=== PATIENT | female | born 1980 | race African-American/Black ===

== ENCOUNTER 2016-12-07 17:26 | Emergency (ER) ==
--- NOTE | 2016-12-07 21:04 | PROVIDER DOCUMENTATION ---
HPI-General Adult - General Chief Complaint: Dizziness Stated Complaint: DIZZINESS Time Seen by Provider: 12/07/16 20:56 Source: patient Allergies/Adverse Reactions: Patient Allergies Allergy/AdvReac Type Severity Reaction Status Date / Time bismuth subsalicylate Allergy Mild RASH Verified 01/16/14 14:32 [From Pepto-Bismol] Penicillins Allergy Unknown RASH Verified 01/16/14 14:32 Home Medications: Home Medication List Medication Instructions Recorded Confirmed Last Taken Type Ciprofloxacin HCl [Cipro] 500 mg PO BID #14 tablet 01/16/14 Unknown Rx Ketorolac [Toradol] 10 mg PO Q6H PRN PRN #15 tablet 06/17/16 Unknown Rx - History of Present Illness -Gen Adult Nature of Presenting Problems: 36y/o F with no chronic medical problems who presents to the ER with complaint of "I left work because I got hot and felt like I was going to pass out". Patient had the same symptoms yesterday that lasted approximately 1 minute. Todays episode started at 2:45pm while working. Patient states she only feels lightheaded when standing up. Patient admits to not drinking much water and working in a hot environment and working a lot recently. LMP: n/a (on depo provera) Location of Pain/Injury: reports: none Quality of Pain: reports: none Onset/Duration: reports: 2 days ago Timing: reports: still present Context/Activities at Onset: reports: moderate activity Review of Systems - Adult - REVIEW OF SYSTEMS - ADULT Constitutional: reports: no symptoms reported. denies: chills, fever Eyes: reports: no symptoms reported. denies: decreased vision, blurred vision, double vision Ears, Nose, Mouth & Throat: reports: no symptoms reported. denies: ear pain, hearing loss Cardiovascular: reports: heart murmur (chronic). denies: chest pain, irregular heart rate, syncope Respiratory: reports: no symptoms reported. denies: cough, dyspnea on exertion , shortness of breath, wheezing Gastrointestinal: reports: no symptoms reported. denies: abdominal pain, nausea , vomiting Genitourinary: reports: no symptoms reported. denies: dysuria, discharge, frequency, flank pain, hematuria Musculoskeletal: reports: no symptoms reported. denies: bone pain, back pain, muscle weakness Integumentary: reports: no symptoms reported. denies: itching, rash Neurological: reports: headache/migraines (history of migraines denies PEREZ currently), other (lightheadedness). denies: dizziness/vertigo, loss of balance , numbness, paresthesia, slurred speech Psychiatric: reports: no symptoms reported Endocrine: reports: no symptoms reported Hematologic/Lymphatic: reports: no symptoms reported Allergic/Immunologic: reports: no symptoms reported All Other Systems: Reviewed and Negative Past History - Adult - PAST MEDICAL HISTORY-ADULT Review of Records: reports: Nursing Assessment Review, Medications Reviewed Major Childhood Illnesses: reports: denies history Cardiovascular: reports: murmur Respiratory: reports: denies history Gastrointestinal: reports: denies history Obstetrical/Gynecological: reports: denies history Genitourinary: reports: denies history Musculoskeletal: reports: denies history Neurological: reports: headaches/migraines (during 3 years ago) Endocrine/Immune: reports: denies history Other Conditions: reports: denies history - PRIOR SURGERIES/PROCEDURES Surgical/Procedure History: reports: none - PRIOR HOSPITALIZATIONS Prior Hospitalizations: reports: none - IMMUNIZATION STATUS Childhood Immunizations: See Nurse Assessment Flu Vaccine: See Nurse Assessment - FAMILY HISTORY Family History: reviewed, not pertinent Physical Exam-General - PHYSICAL EXAM-ADULT Initial Vital Signs Reviewed: Yes - CONSTITUTIONAL General Appearance: appears well, alert, no apparent distress - EYES Eyes: PERRL/EOMI, pink conjunctivae - HEAD, EARS, NOSE, MOUTH & THROAT HENMT: normocephalic/atraumatic, moist mucous membranes - NECK Neck: non-tender, full range of motion, supple - RESPIRATORY Respiratory: chest non-tender, lungs clear, normal breath sounds, no pleuratic chest pain, no respiratory distress, no accessory muscle use - CARDIOVASCULAR Cardiovascular: normal peripheral pulses, regular rate, rhythm, no edema, other (murmur) - GASTROINTESTINAL (ABDOMEN) Abdominal Exam: non tender, soft - LYMPHATIC Lymphatic: no adenopathy - MUSCULOSKELETAL Extremity: normal range of motion, non-tender, normal gait, normal inspection Peripheral Pulses: radial (R): 2+, radial (L): 2+ - SKIN Integumentary: normal color, normal turgor, warm/dry - NEUROLOGIC Neurologic: ap processor II-XII nml as tested, grossly normal, no motor/sensory deficits . negative: abnormal gait, aphasia, EOM palsy, facial droop, focal weakness, motor weakness, sensory deficit - PSYCHIATRIC Psych/Mental Status: normal mood/affect, normal thought content, normal thought process, oriented x 3 Progress - PLAN OF CARE/RESULTS Progress/Plan/Lab Results: Orders Category Date Time Status CBC WITH ELECTRONIC DIFF [HEME] Stat Lab 12/07/16 21:41 Completed COMPREHENSIVE METABOLIC PANEL [CHEM] Stat Lab 12/07/16 21:41 Completed TEST-URINE [PREG] Stat Lab 12/07/16 21:40 Completed 0.9% Sodium Chloride Inj [Ns] 1,000 ml Med 12/07/16 21:06 Discontinued IV 999 mls/hr Laboratory Tests 12/07/16 12/07/16 03 21:40 21:41 21:41 WBC 8.99 RBC 4.36 Hgb 12.2 Hct 37.2 MCV 85.3 MCH 28.0 MCHC 32.8 L RDW Std Deviation 14.6 H Plt Count 253 MPV 9.8 Immature Gran % (Auto) 0.2 Neut % (Auto) 38.7 L Lymph % (Auto) 46.3 Luce % (Auto) 8.1 Eos % (Auto) 6.1 Baso % (Auto) 0.6 Immature Gran # (Auto) 0.02 Neut # (Auto) 3.48 Lymph # (Auto) 4.16 H Luce # (Auto) 0.73 H Eos # (Auto) 0.55 Baso # (Auto) 0.05 Sodium 139 Potassium 3.8 Chloride 104 Carbon Dioxide 23 L Anion Gap 12 BUN 16 Creatinine 0.7 Estimated GFR/1.73 m2 > 60 BUN/Creatinine Ratio 23 Glucose 82 POC Glucose Calculated Osmolality 278 Calcium 9.2 Total Bilirubin 0.20 AST 17 ALT 13 Alkaline Phosphatase 66 Total Protein 6.9 Albumin 3.9 Globulin 3.0 Albumin/Globulin Ratio 1.0 Urine Test NEGATIVE 12/07/16 21:59 WBC RBC Hgb Hct MCV MCH MCHC RDW Std Deviation Plt Count MPV Immature Gran % (Auto) Neut % (Auto) Lymph % (Auto) Luce % (Auto) Eos % (Auto) Baso % (Auto) Immature Gran # (Auto) Neut # (Auto) Lymph # (Auto) Luce # (Auto) Eos # (Auto) Baso # (Auto) Sodium Potassium Chloride Carbon Dioxide Anion Gap BUN Creatinine Estimated GFR/1.73 m2 BUN/Creatinine Ratio Glucose POC Glucose 116 H Calculated Osmolality Calcium Total Bilirubin AST ALT Alkaline Phosphatase Total Protein Albumin Globulin Albumin/Globulin Ratio Urine Test Vital Signs Temp Pulse Pulse Pulse Pulse Resp BP 12/07/16 19:21 96 H 102 H 94 H 12/07/16 17:50 99.2 F 93 H 20 137/79 BP BP BP Pulse Ox 12/07/16 19:21 138/89 128/97 135/87 12/07/16 17:50 98 bismuth subsalicylate [From Pepto-Bismol] Allergy (Mild, Verified 01/16/14 14:32 ) RASH Penicillins Allergy (Unknown, Verified 01/16/14 14:32) RASH Ciprofloxacin HCl [Cipro] 500 mg PO BID #14 tablet 01/16/14 Ketorolac [Toradol] 10 mg PO Q6H PRN PRN #15 tablet 06/17/16 Laboratory 12/07/16 12/07/16 12/07/16 21:59 21:41 21:41 WBC 8.99 RBC 4.36 Hgb 12.2 Hct 37.2 MCV 85.3 MCH 28.0 MCHC 32.8 L RDW Std Deviation 14.6 H Plt Count 253 MPV 9.8 Immature Gran % (Auto) 0.2 Neut % (Auto) 38.7 L Lymph % (Auto) 46.3 Luce % (Auto) 8.1 Eos % (Auto) 6.1 Baso % (Auto) 0.6 Immature Gran # (Auto) 0.02 Neut # (Auto) 3.48 Lymph # (Auto) 4.16 H Luce # (Auto) 0.73 H Eos # (Auto) 0.55 Baso # (Auto) 0.05 Sodium 139 Potassium 3.8 Chloride 104 Carbon Dioxide 23 L Anion Gap 12 BUN 16 Creatinine 0.7 Estimated GFR/1.73 m2 > 60 BUN/Creatinine Ratio 23 Glucose 82 POC Glucose 116 H Calculated Osmolality 278 Calcium 9.2 Total Bilirubin 0.20 AST 17 ALT 13 Alkaline Phosphatase 66 Total Protein 6.9 Albumin 3.9 Globulin 3.0 Albumin/Globulin Ratio 1.0 Urine Test 12/07/16 21:40 WBC RBC Hgb Hct MCV MCH MCHC RDW Std Deviation Plt Count MPV Immature Gran % (Auto) Neut % (Auto) Lymph % (Auto) Luce % (Auto) Eos % (Auto) Baso % (Auto) Immature Gran # (Auto) Neut # (Auto) Lymph # (Auto) Luce # (Auto) Eos # (Auto) Baso # (Auto) Sodium Potassium Chloride Carbon Dioxide Anion Gap BUN Creatinine Estimated GFR/1.73 m2 BUN/Creatinine Ratio Glucose POC Glucose Calculated Osmolality Calcium Total Bilirubin AST ALT Alkaline Phosphatase Total Protein Albumin Globulin Albumin/Globulin Ratio Urine Test NEGATIVE - REASSESSMENT Reassessment #1 Time Reassessed: 22:24 (Labs unremarkable. Orthostatics negative. Patients lightheadedness resolved after fluids. Will discharge home to follow up with a PCP.) Departure - Departure Time of Disposition Order: 22:23 DIAGNOSIS: Light-headedness, Mild dehydration Disposition: HOME 01 Certified Medical Emergency: Emergent Condition: Good Additional Instructions: Drink plenty of water. Follow up with a primary care provider for further evaluation. Return to ER for any new or worsening symptoms. ED Follow Up Instructions: You have been treated by a care provider in the Emergency Department. These instructions are being provided to you so you can have an understanding of how to care for yourself upon discharge. Upon discharge from the Emergency Department, you are responsible for making arrangements for follow-up care by a physician of your choice. Take all prescribed medications as directed. Return to the Emergency Department immediately for any new or worsening symptoms. You may call the Physician Referral phone number at [phone] to obtain a list of Physicians who are taking new patients. Attestation - Physician/ [facility] Attestation Patient care was provided by Advanced Practice Provider:: Yes Advanced Practice Provider:: Thelma Zhong Advanced Practice Provider documentation review:: The Mid-level provider documentation, treatment plan and medical decision making was reviewed by the physician who agrees with all treatment and medical decision making by the MLP.
[2016-12-07] MEDS ORDERED: NS 1,000 ML IV ONE (21:06)
[2016-12-07 21:58] LABS: MANUAL DIFF NEEDED? NO
[2016-12-07 22:00] LABS: BASO% 0.6 % (0.0-0.8); EOS# 0.55 X1000 (0.0-0.7); EOS% 6.1 % (0.0-10.0); HEMATOCRIT 37.2 % (37.0-47.0); HEMOGLOBIN 12.2 g/dL (12.0-16.0); IMM GRAN# 0.02 X1000 (0.0-0.04); IMM GRAN% 0.2 % (0.0-0.5); LYMPH# 4.16 X1000 (1.2-3.4); LYMPH% 46.3 % (20.5-51.1); MCHC 32.8 g/dL (33-37); MCV 85.3 FL (81-99); MONO# 0.73 X1000 (0.11-0.59); MONO% 8.1 % (1.7-9.3); MPV 9.8 FL (7.4-10.4); NEUT% 38.7 % (42.2-75.2); PLT 253 X1000 (130-400); RBC 4.36 XMIL (4.2-5.4)
[2016-12-07 22:18] LABS: AGAP 12; ALBUMIN 3.9 g/dL (3.5-5.0); ALKALINE PHOSPHATASE 66 U/L (32-104); BUN 16 mg/dL (8-22); CALCIUM 9.2 mg/dL (8.8-10.2); CHLORIDE 104 mmol/L (98-107); COSMO 278; GOT 17 U/L (10-30); GPT 13 U/L (10-36); POTASSIUM 3.8 mmol/L (3.5-5.1); SODIUM 139 mmol/L (136-145); TCO2 23 mmol/L (25-35); TOTAL PROTEIN 6.9 g/dL (6.3-8.3)
[2016-12-08 00:33] VITALS: BP 124/77
== END 2016-12-08 00:32 | disposition home or self-care (01) ==
LOC: P.ED 17:26
DX: E86.0 Dehydration (principal); R42 Dizziness and giddiness; R01.1 Cardiac murmur, unspecified
CPT/HCPCS: 80053; 81025; 82948; 85025; 96360; J7030